=== PATIENT | female | born 1960 | race Caucasian/White ===

== ENCOUNTER 2024-04-13 16:19 | Emergency (ER) | payer OTHER, SELFPAY ==
[2024-04-13] VITALS (14 sets, daily range): BP systolic 160–203; BP diastolic 75–100; PULSE 79–93; RESP 18–20; TEMP 36.7; O2SAT 95–99
[2024-04-13 17:12] LABS: Add Manual Diff / Slide Review NO; Basophils Absolute Auto 0 /uL (0-100); Basophils Percent Auto 0.2 % (0-2); Eosinophils Absolute Auto 100 /uL (0-450); Eosinophils Percent Auto 1.9 % (2-4); Hematocrit 47.1 % (36-46); Hemoglobin 15.7 g/dL (12.0-16.0); Lymphocytes Absolute Auto 1700 /uL (1100-4500); Lymphocytes Percent Auto 29.6 % (25-40); Mean Corpuscular HGB Conc 33.3 % (30-36); Mean Corpuscular Hemoglobin 29.1 PG (26-34); Mean Corpuscular Volume 87.4 fL (80-100); Monocytes Absolute Auto 600 /uL (0-900); Monocytes Percent Auto 10.3 % (3-14); Neutrophils Absolute Auto 3400 /uL (1500-7000); Platelet Count 128 X10^3/uL (150-400); Red Blood Cell Count 5.39 X10^6/uL (4.0-5.2); Red Cell Distribution Width 13.3 % (11.6-14.8); White Blood Cell Count 5.9 X10^3/uL (4.5-11.0)
[2024-04-13 18:23] LABS: Alanine Aminotransferase 21 IU/L (<35); Albumin 4.5 g/dL (3.5-5.0); Albumin Globulin Ratio 1.3 (1.0-2.8); Alkaline Phosphatase 101 U/L (38-126); Aspartate Aminotransferase 35 IU/L (14-36); BUN Creatinine Ratio 14.7 (6-22); Bilirubin Total 0.7 mg/dL (0.2-1.3); Blood Urea Nitrogen 11 mg/dL (7-17); Calcium 9.1 mg/dL (8.4-10.2); Carbon Dioxide 26 mmol/L (22-32); Chloride 105 mmol/L (98-107); Estimated Glomerular Filt Rate > 60 mL/min (>60); Globulin 3.5 g/dL (1.7-4.1); Glucose 98 mg/dL (80-110); HEMOLYSIS < 15 (0-50); Lipase 80 U/L (23-300); Sodium 140 mmol/L (137-145)
[2024-04-13 21:20] LABS: Urine Volume 10mL (spun); WBC Urine 1-5/HPF (0-5/HPF)
[2024-04-13 21:21] LABS: Bacteria Urine Few (2-10); Culture Indicated Urine Cult Not Indicated; Mucus Urine 1+ (Negative); RBC Urine 0-1/HPF (0-5/HPF); Squamous Epithelial Cell Urine 0-1 /HPF (0-5/HPF)
--- NOTE | 2024-04-13 22:12 | ED_ITS ---
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 No hard stools. No fevers or chills. No recent antibiotics. No history of colitis or diverticulitis. No history of known Crohn's disease or inflammatory bowel disease. No recent colonoscopy or other abdominal procedures. No close contact exposure to persons with similar symptoms. No recent travel, camping, exposure to antibiotics Related Data Previous Rx's Medication Instructions Recorded ciprofloxacin HCl 500 mg tablet 500 mg PO BID 10 days #20 tabs 04/14/24 Allergies Allergy/AdvReac Type Severity Reaction Status Date / Time No Known Drug Allergies Allergy Verified 04/13/24 22:45 Review of Systems Review of Systems Narrative: see HPI Patient History Social History Smoking Status: Never smoker Smoking Status: Never smoker alcohol intake frequency: 0-2 drinks per day Substance Use Type: does not use Exam Narrative Exam Narrative: GENERAL: Well-developed patient, in mild distress. HEAD: Atraumatic. Normocephalic. EYES: Pupils equal round and reactive. Extraocular motions intact. No scleral icterus. No injection or drainage. ENT: Nose without bleeding, purulent drainage. Throat without erythema, tonsillar hypertrophy or exudate. Airway patent. NECK: Trachea midline. Non tender CARDIOVASCULAR: Regular rate and rhythm without murmurs, gallops, or rubs. RESPIRATORY: Clear to auscultation. Breath sounds equal bilaterally. No wheezes, rales, or rhonchi. GASTROINTESTINAL: Abdomen nondistended, mild bilateral lower quadrant tenderness, no ventral hernias obvious, no guarding or rebound EXTREMITIES: No edema or joint tenderness. BACK: Nontender without deformity or crepitance. No flank tenderness. NEURO: AOx3. Motor functions grossly nonfocal SKIN: No rash or erythema of visible areas Initial Vital Signs Initial Vital Signs: Vital Signs Temperature 98.1 F 04/13/24 16:34 Pulse Rate 93 H 04/13/24 16:34 Respiratory Rate 20 04/13/24 16:34 Blood Pressure 193/100 H 04/13/24 16:34 Pulse Oximetry 97 04/13/24 16:34 Oxygen Delivery Method Room Air 04/13/24 16:34 Course Orders Ordered: ED Orders 04/13/24 22:19 CT abdomen pelvis w con Stat Discontinued Medications Ciprofloxacin (Ciprofloxacin 250 Mg Tablet) 500 mg PO NOW ONE Stop: 04/14/24 02:08 Last Admin: 04/14/24 02:11 Dose: 500 mg Documented By: GINA Sodium Chloride (Normal Saline 0.9%) 1,000 mls @ 500 mls/hr IV BOLUS ONE Stop: 04/14/24 00:40 Last Infusion: 04/14/24 01:38 Dose: Infused Documented By: Admin: 04/13/24 22:49 Dose: 500 mls/hr Documented By: JORGE Loperamide HCl (Loperamide 2 Mg Capsule) 2 mg PO NOW ONE Stop: 04/14/24 02:04 Last Admin: 04/14/24 02:11 Dose: 2 mg Documented By: GINA Morphine Sulfate (Morphine 4 Mg/Ml Inj) 4 mg IV NOW ONE Stop: 04/13/24 22:21 Last Admin: 04/13/24 22:26 Dose: 4 mg Documented By: JORGE Ondansetron HCl (Ondansetron 4 Mg/2 Ml Inj) 4 mg IV NOW PRN PRN Reason: Nausea And Vomiting Ondansetron HCl (Ondansetron 4 Mg Odt) 4 mg PO NOW PRN PRN Reason: Nausea And Vomiting Ondansetron HCl (Ondansetron 4 Mg/2 Ml Inj) 4 mg IV NOW ONE Stop: 04/13/24 22:21 Last Admin: 04/13/24 22:26 Dose: 4 mg Documented By: JORGE Ondansetron HCl (Ondansetron 4 Mg Odt Prepack) 1 bottle MISC DIRECTED ONE Stop: 04/14/24 02:04 Last Admin: 04/14/24 02:11 Dose: 1 bottle Documented By: GINA Vital Signs Vital signs: Vital Signs - 8 hr 04/13/24 23:00 04/13/24 23:01 04/13/24 23:01 Temperature Pulse Rate 81 82 Respiratory Rate Blood Pressure 175/84 H Pulse Oximetry 95 95 Oxygen Delivery Method 04/13/24 23:20 04/13/24 23:20 04/13/24 23:30 Temperature Pulse Rate 82 81 Respiratory Rate 18 Blood Pressure 172/83 H Pulse Oximetry 95 95 Oxygen Delivery Method 04/13/24 23:40 04/13/24 23:40 04/14/24 00:00 Temperature Pulse Rate 82 Respiratory Rate Blood Pressure 162/78 H 163/85 H Pulse Oximetry 95 Oxygen Delivery Method 04/14/24 00:00 04/14/24 00:20 04/14/24 00:20 Temperature Pulse Rate 80 77 Respiratory Rate Blood Pressure 156/82 H Pulse Oximetry 94 94 Oxygen Delivery Method 04/14/24 00:30 04/14/24 00:40 04/14/24 00:40 Temperature Pulse Rate 79 76 Respiratory Rate Blood Pressure 154/83 H Pulse Oximetry 94 94 Oxygen Delivery Method 04/14/24 01:00 04/14/24 01:00 04/14/24 01:20 Temperature Pulse Rate 76 78 Respiratory Rate Blood Pressure 156/75 H Pulse Oximetry 93 95 Oxygen Delivery Method 04/14/24 01:20 04/14/24 01:30 04/14/24 01:40 Temperature Pulse Rate 77 77 Respiratory Rate Blood Pressure 164/82 H Pulse Oximetry 95 94 Oxygen Delivery Method 04/14/24 01:40 04/14/24 02:00 04/14/24 02:00 Temperature Pulse Rate 80 Respiratory Rate Blood Pressure 157/73 H 171/78 H Pulse Oximetry 94 Oxygen Delivery Method 04/14/24 02:32 Temperature 98.2 F Pulse Rate 87 Respiratory Rate 20 Blood Pressure Pulse Oximetry 98 Oxygen Delivery Method Room Air MDM - Abdominal Pain Lab Data Attestation: I reviewed the patient's lab results. Lab results narrative: White blood cell count 5900, hemoglobin 15.7, platelets [id number]. 04/13/24 16:52 04/13/24 17:45 Labs: Lab Results 04/13/24 04/13/24 04/13/24 Range/Units 16:52 17:45 21:05 WBC 5.9 (4.5-11.0) X10^3/uL RBC 5.39 H (4.0-5.2) X10^6/uL Hgb 15.7 (12.0-16.0) g/dL Hct 47.1 H (36-46) % MCV 87.4 (80-100) fL MCH 29.1 (26-34) PG MCHC 33.3 (30-36) % RDW 13.3 (11.6-14.8) % Plt Count 128 L (150-400) X10^3/uL Neut % (Auto) 58.0 (50-75) % Lymph % (Auto) 29.6 (25-40) % [place] % (Auto) 10.3 (3-14) % Eos % (Auto) 1.9 L (2-4) % Baso % (Auto) 0.2 (0-2) % Neut # (Auto) 3400 (4488-0295) /uL Lymph # (Auto) 1700 (8039-6542) /uL [place] # (Auto) 600 (0-900) /uL Eos # (Auto) 100 (0-450) /uL Baso # (Auto) 0 (0-100) /uL Sodium 140 (137-145) mmol/L Potassium 4.0 (3.4-5.1) mmol/L Chloride 105 (98-107) mmol/L Carbon Dioxide 26 (22-32) mmol/L BUN 11 (7-17) mg/dL Creatinine 0.75 (0.52-1.04) mg/dL Estimated GFR > 60 (>60) mL/min BUN/Creatinine Ratio 14.7 (6-22) Glucose 98 (80-110) mg/dL Calcium 9.1 (8.4-10.2) mg/dL Total Bilirubin 0.7 (0.2-1.3) mg/dL AST 35 (14-36) IU/L ALT 21 (<35) IU/L Alkaline Phosphatase 101 (38-126) U/L Total Protein 8.0 (6.3-8.2) g/dL Albumin 4.5 (3.5-5.0) g/dL Globulin 3.5 (1.7-4.1) g/dL Albumin/Globulin Ratio 1.3 (1.0-2.8) Lipase 80 (23-300) U/L Urine RBC 0-1/hpf (0-5/HPF) Urine WBC 1-5/hpf (0-5/HPF) Ur Squamous Epith Cells 0-1 /hpf (0-5/HPF) Urine Bacteria Few (2-10) H (None) Urine Mucus 1+ H (Negative) Ur Culture Indicated? Cult not indicated Vol Urine Centrifuged 10ml (spun) Point of care testing: Urine Dip Bedside Urine Glucose Negative Bedside Urine Bilirubin - Negative Bedside Urine Ketone - Negative Urine Specific [place] 1.005 Bedside Urine Occult Blood +/- Bedside Urine pH 6.0 Bedside Urine Protein - Negative Bedside Urine Urobilinogen - Negative Bedside Urine Nitrite - Negative Bedside Urine Leukocytes - Negative Esterase MDM Narrative Medical decision making narrative: 63-year-old female with lower crampy abdominal pain, multiple episodes nausea and vomiting, multiple episodes diarrhea, no black or red emesis or stool. Afebrile, sirs screen negative. Some tenderness bilateral lower quadrants, no obvious ventral hernias. Nondistended. Labs pending. Renal function adequate, patient would like pain control measures. IV morphine/Zofran. Keep NPO. CT abdomen and pelvis ordered. GI pathogens panel ordered if a specimen is collected. CT shows enterocolitis changes, see radiology report. Suspect viral illness by symptoms and CT findings. No stool specimen received for testing. Patient still has headache but declines any further treatment for now, we would like to go home. Home pack Zofran, oral dose loperamide for discharge. Home with family. Precautions discussed Discharge Plan Departure Patient Disposition: Home Clinical Impression: Nausea vomiting and diarrhea, Enterocolitis Activity Restrictions/Additional Instructions: Nausea vomiting diarrhea. CT shows enterocolitis. This can be viral, however colonic inflammation can be bacterial, trial course of antibiotics. First dose oral ciprofloxacin now, further antibiotics as outpatient for now. Home pack Zofran to use for nausea control. Dose of oral Imodium for diarrhea control also given, though you did not produce a specimen the entire multiple hours here in the emergency department for testing, [id number] Imodium can be used for diarrhea control. Recheck symptoms advised with your regular doctor on Wednesday. Return to this/nearest emergency department for any change worsening symptoms or any concerns prior Prescriptions: New ciprofloxacin HCl 500 mg tablet 500 mg PO BID 10 Days Qty: 20 0RF Stand Alone Forms: Patient Portal/API/Survey, Work Release Note
--- NOTE | 2024-04-13 22:19 | DI.CT.S_ITS ---
PROCEDURE: CT ABDOMEN PELVIS W CON INDICATIONS: abd pain, N/V/D TECHNIQUE: After the administration of intravenous contrast, axial sections acquired from the lung bases to the pubic symphysis. Coronal and sagittal reformats were performed. For radiation dose reduction, the following was used: automated exposure control, adjustment of mA and/or kV according to patient size. COMPARISON: None. FINDINGS: Image quality: Diagnostic. Lower Chest: Mild bibasilar atelectasis. Small hiatal hernia. ABDOMEN: Liver: No solid mass. Mild diffuse hepatic steatosis. Gallbladder: No radiopaque gallstones or wall thickening. Biliary ducts: No biliary dilation. Pancreas: Homogeneous enhancement without focal lesions or pancreatic ductal dilatation. No peripancreatic inflammation or organized fluid collections. Spleen: Size is within normal limits. Adrenal Glands: No adrenal nodules. Kidneys and Ureters: No hydronephrosis. No solid mass. No complex renal cystic lesion which requires follow up. Bilateral ureters are normal in course and caliber. Likely left-sided peripelvic cysts. Stomach and Bowel: Normal colonic caliber, without significant wall thickening. Diffusely scattered fluid-filled loops of small bowel and colon. No evidence for bowel obstruction. Peritoneum: No abnormal intraperitoneal fluid. No free air. Ventral Wall: No significant ventral hernia. Abdominal Nodes: No retroperitoneal or mesenteric adenopathy by size criteria. Vessels: Scattered atherosclerotic calcifications of the abdominal aorta and iliac vessels without aneurysmal dilatation. The inferior vena cava appears patent. PELVIS: Pelvic Organs: Unremarkable. Bladder: No bladder wall thickening, accounting for underdistention. Pelvic Nodes: No enlarged lymph nodes. Miscellaneous: No inguinal hernias are seen. Bones: No aggressive osseous abnormality. Visualized osseous structures appear intact without acute fracture or focal destructive lesion. No acute compression fractures of the imaged spine. Postsurgical changes of spinal fusion of L4 through S1. IMPRESSION: 1. Multiple scattered loops of fluid-filled small bowel and colon without abnormal wall thickening or evidence of obstruction. Findings are nonspecific but may represent enterocolitis either infectious or inflammatory in etiology. 2. Hepatic steatosis. 3. Small hiatal hernia. 4. Atherosclerosis. 5. Status post spinal fusion of L4 through S1. Dictated by: Onel Orozco M.D. on 04/13/2024 at 22:40 Approved by: Onel Orozco M.D. on 04/13/2024 at 22:45
[2024-04-13] MEDS: ONDANSETRON 4 MG/2 ML INJ IV (22:26)
[2024-04-13] MEDS: MORPHINE 4 MG/ML INJ IV (22:26)
[2024-04-13] MEDS: SODIUM CHLORIDE 0.9% 1,000 ML 500 ML IV (22:49)
[2024-04-14] VITALS (10 sets, daily range): BP systolic 154–171; BP diastolic 73–85; PULSE 76–87; RESP 20; TEMP 36.8; O2SAT 93–98
[2024-04-14] MEDS: CIPROFLOXACIN 250 MG TABLET 500 MG PO (02:11)
[2024-04-14] MEDS: ONDANSETRON 4 MG ODT PREPACK 1 BOTTLE MISC (02:11)
[2024-04-14] MEDS: LOPERAMIDE 2 MG CAPSULE PO (02:11)
== END 2024-04-14 02:33 | disposition home or self-care (01) ==
PROVIDERS: Emergency Medicine; Emergency Provider Emergency Medicine
DX: K52.9 Noninfective gastroenteritis and colitis, unspecified (principal); R11.2 Nausea with vomiting, unspecified
CPT/HCPCS: 36415; 74177; 80053; 81003; 81015; 83690; 85025; 96361; 96374; 96375; 99284; J2270; J2405; Q9967